=== PATIENT | female | born 1930 | race Caucasian/White ===

== ENCOUNTER 2016-09-04 11:04 | Emergency (ER) | payer MEDICARE ==
[2016-09-04 11:20] LABS: Glucose,Whole Blood 106 mg/dL (75-99)
[2016-09-04] MEDS ORDERED: KETOROLAC 60 MG/2 ML VIAL IVP STA (11:29)
[2016-09-04] MEDS ORDERED: ACETAMINOPHEN TAB 500 MG TAB PO STA (11:31)
--- NOTE | 2016-09-04 11:36 | ED ---
General Adult HPI - General Chief complaint: Weakness Stated complaint: Numbness Time Seen by Provider: 09/04/16 11:15 Source: patient, RN notes reviewed Mode of arrival: wheelchair Limitations: no limitations - History of Present Illness Initial comments: This is an 86-year-old female who presents emergency department with past medical history significant for chronic back pain and back surgery. Patient states when she woke up and her back pain was worsened normal and she is having tingling down both legs but no actual numbness. Patient states she has normal range of motion of her lower extremities. Patient denies any dysuria or incontinence or retention. Patient states she was having some urinary frequency. Patient had a fever in ER she was unaware of this when she arrived. Patient states she was able to ablate with her walker normally today. Patient denies any difficulty breathing or shortness of breath per patient denies any cough. Patient denies any chest pain. Patient denies any lightheadedness dizziness or near syncopal episode. Patient denies any abdominal pain patient denies nausea vomiting diarrhea. - Related Data Home Medications Medication Instructions Recorded Confirmed Docusate [Colace] 100 mg PO DAILY 12/07/15 09/04/16 Furosemide [Lasix] 20 mg PO DAILY 12/07/15 09/04/16 Lisinopril [Zestril] 20 mg PO DAILY 12/07/15 09/04/16 Potassium 99 mg PO DAILY 12/07/15 09/04/16 Terazosin [Hytrin] 5 mg PO HS 12/07/15 09/04/16 oxyCODONE-APAP 10-325MG [Percocet 1 tab PO TID@0400,1200,2000 12/07/15 09/04/16 10-325 mg] Methadone [Dolophine] 10 mg PO TID@0000,0800,1600 09/04/16 09/04/16 Previous Rx's Medication Instructions Recorded Levofloxacin 750Mg-D5w Pmx 750 mg IVPB Q24H #7 bag 09/04/16 [Levaquin 750Mg-D5w Pmx] Allergies Allergy/AdvReac Type Severity Reaction Status Date / Time cephalexin [From Keflex] Allergy Unknown Verified 09/04/16 11:56 Review of Systems ROS Statement: Those systems with pertinent positive or pertinent negative responses have been documented in the HPI. ROS Other: All systems not noted in ROS Statement are negative. Past Medical History Past Medical History: Hypertension Additional Past Medical History / Comment(s): chronic back pain History of Any Multi-Drug Resistant Organisms: None Reported Past Surgical History: Back Surgery Past Psychological History: No Psychological Hx Reported Smoking Status: Never smoker Past Alcohol Use History: Occasional Past Drug Use History: None Reported General Exam - General Exam Comments Initial Comments: GENERAL: Patient is well-developed and well-nourished. Patient is nontoxic and well- hydrated and is in mild distress. ENT: Neck is soft and supple. No significant lymphadenopathy is noted. Oropharynx is clear. Moist mucous membranes. Neck has full range of motion without eliciting any pain. EYES: The sclera were anicteric and conjunctiva were pink and moist. Extraocular movements were intact and pupils were equal round and reactive to light. Eyelids were unremarkable. PULMONARY: Unlabored respirations. Good breath sounds bilaterally. No audible rales rhonchi or wheezing was noted. CARDIOVASCULAR: There is a regular rate and rhythm without any murmurs gallops or rubs. ABDOMEN: Soft and nontender with normal bowel sounds. No palpable organomegaly was noted. There is no palpable pulsatile mass. SKIN: Skin is clear with no lesions or rashes and otherwise unremarkable. NEUROLOGIC: Patient is alert and oriented x3. Cranial nerves II through XII are grossly intact. Motor and sensory are also intact. Normal speech, volume and content. Symmetrical smile. MUSCULOSKELETAL: Normal extremities with adequate strength and full range of motion. LYMPHATICS: No significant lymphadenopathy is noted PSYCHIATRIC: Normal psychiatric evaluation. Limitations: no limitations Course Vital Signs 09/04/16 09/04/16 11:16 13:49 Temperature 100.1 F H 98.7 F Pulse Rate 92 68 Respiratory 18 18 Rate Blood Pressure 179/85 135/61 O2 Sat by Pulse 97 97 Oximetry Medical Decision Making - Medical Decision Making EKG shows a normal sinus rhythm with occasional PAC at 86 bpm. It was 144 Hugo is 72 QT interval 362 QTC is 433. Patient's EKG shows no ST segment elevation or depression or T wave abnormalities are noted. Patient has a urinary tract infection was start the patient on Levaquin emergency department sent the patient home on Levaquin. Patient states her back pain is gotten considerably better since the Toradol Tylenol were given. - Lab Data Result diagrams: 09/04/16 11:32 09/04/16 11:32 Lab Results 09/04/16 09/04/16 09/04/16 Range/Units 11:13 11:32 11:32 WBC 5.4 (3.8-10.6) k/uL RBC 3.66 L (3.80-5.40) m/uL Hgb 11.8 (11.4-16.0) gm/dL Hct 35.7 (34.0-46.0) % MCV 97.7 (80.0-100.0) fL MCH 32.2 (25.0-35.0) pg MCHC 33.0 (31.0-37.0) g/dL RDW 13.0 (11.5-15.5) % Plt Count 323 (150-450) k/uL Neutrophils % 71 % Lymphocytes % 21 % Monocytes % 5 % Eosinophils % 0 % Basophils % 0 % Neutrophils # 3.9 (1.3-7.7) k/uL Lymphocytes # 1.1 (1.0-4.8) k/uL Monocytes # 0.3 (0-1.0) k/uL Eosinophils # 0.0 (0-0.7) k/uL Basophils # 0.0 (0-0.2) k/uL Sodium 138 (137-145) mmol/L Potassium 4.3 (3.5-5.1) mmol/L Chloride 106 (98-107) mmol/L Carbon Dioxide 23 (22-30) mmol/L Anion Gap 9 mmol/L BUN 17 (7-17) mg/dL Creatinine 0.66 (0.52-1.04) mg/dL Est GFR (MDRD) Af Amer >60 (>60 ml/min/1.73 sqM) Est GFR (MDRD) Non-Af >60 (>60 ml/min/1.73 sqM) Glucose 99 (74-99) mg/dL POC Glucose (mg/dL) 106 H (75-99) mg/dL POC Glu Electrical [employer] Intern ID Robby Brown Plasma Lactic Acid Brigido (0.7-2.0) mmol/L Calcium 9.0 (8.4-10.2) mg/dL Total Bilirubin 0.6 (0.2-1.3) mg/dL AST 26 (14-36) U/L ALT 20 (9-52) U/L Alkaline Phosphatase 47 (38-126) U/L Total Protein 7.0 (6.3-8.2) g/dL Albumin 3.8 (3.5-5.0) g/dL Urine Color Urine Appearance (Clear) Urine pH (5.0-8.0) Ur Specific Clayton (1.001-1.035) Urine Protein (Negative) Urine Glucose (UA) (Negative) Urine Ketones (Negative) Urine Blood (Negative) Urine Nitrite (Negative) Urine Bilirubin (Negative) Urine Urobilinogen (<2.0) mg/dL Ur Leukocyte Esterase (Negative) Urine WBC (0-5) /hpf Ur Squamous Epith Cells (0-4) /hpf Amorphous Sediment (None) /hpf Urine Bacteria (None) /hpf Urine Mucus (None) /hpf 09/04/16 09/04/16 Range/Units 11:32 13:08 WBC (3.8-10.6) k/uL RBC (3.80-5.40) m/uL Hgb (11.4-16.0) gm/dL Hct (34.0-46.0) % MCV (80.0-100.0) fL MCH (25.0-35.0) pg MCHC (31.0-37.0) g/dL RDW (11.5-15.5) % Plt Count (150-450) k/uL Neutrophils % % Lymphocytes % % Monocytes % % Eosinophils % % Basophils % % Neutrophils # (1.3-7.7) k/uL Lymphocytes # (1.0-4.8) k/uL Monocytes # (0-1.0) k/uL Eosinophils # (0-0.7) k/uL Basophils # (0-0.2) k/uL Sodium (137-145) mmol/L Potassium (3.5-5.1) mmol/L Chloride (98-107) mmol/L Carbon Dioxide (22-30) mmol/L Anion Gap mmol/L BUN (7-17) mg/dL Creatinine (0.52-1.04) mg/dL Est GFR (MDRD) Af Amer (>60 ml/min/1.73 sqM) Est GFR (MDRD) Non-Af (>60 ml/min/1.73 sqM) Glucose (74-99) mg/dL POC Glucose (mg/dL) (75-99) mg/dL POC Glu Electrical [employer] Intern ID Plasma Lactic Acid Brigido 1.7 (0.7-2.0) mmol/L Calcium (8.4-10.2) mg/dL Total Bilirubin (0.2-1.3) mg/dL AST (14-36) U/L ALT (9-52) U/L Alkaline Phosphatase (38-126) U/L Total Protein (6.3-8.2) g/dL Albumin (3.5-5.0) g/dL Urine Color Light Yellow Urine Appearance Cloudy H (Clear) Urine pH 8.0 (5.0-8.0) Ur Specific [place] 1.009 (1.001-1.035) Urine Protein Negative (Negative) Urine Glucose (UA) Negative (Negative) Urine Ketones Negative (Negative) Urine Blood Negative (Negative) Urine Nitrite Negative (Negative) Urine Bilirubin Negative (Negative) Urine Urobilinogen <2.0 (<2.0) mg/dL Ur Leukocyte Esterase Large H (Negative) Urine WBC 28 H (0-5) /hpf Ur Squamous Epith Cells <1 (0-4) /hpf Amorphous Sediment Few H (None) /hpf Urine Bacteria Rare H (None) /hpf Urine Mucus Rare H (None) /hpf Disposition Clinical Impression: Urinary tract infection, Chronic back pain Disposition: HOME SELF-CARE Condition: Good Instructions: Urinary Tract Infection in Women (ED) Prescriptions: Levofloxacin 750Mg-D5w Pmx [Levaquin 750Mg-D5w Pmx] 750 mg IVPB Q24H #7 bag Referrals: Mago Jackson DO [Primary Care Provider] - 1-2 days Time of Disposition: 14:02
[2016-09-04 11:44] LABS: Basophils % (A) 0 %; CHCM 33.9; Eosinophils % (A) 0 %; HCT 35.7 % (34.0-46.0); HDW 2.29; HGB 11.8 gm/dL (11.4-16.0); Luc # (Auto) 0.12; Luc % (Auto) 2; Lymphocytes # (A) 1.1 k/uL (1.0-4.8); Lymphocytes % (A) 21 %; MCH 32.2 pg (25.0-35.0); MCV 97.7 fL (80.0-100.0); Mean Platelet Volume 7.3; Monocytes # (A) 0.3 k/uL (0-1.0); Monocytes % (A) 5 %; Neutrophils # (A) 3.9 k/uL (1.3-7.7); Neutrophils % (A) 71 %; RBC 3.66 m/uL (3.80-5.40); WBC 5.4 k/uL (3.8-10.6); WBC (Perox) 5.63
[2016-09-04 11:55] LABS: ALT 20 U/L (9-52); AST 26 U/L (14-36); Alkaline Phosphatase 47 U/L (38-126); Anion Gap 9 mmol/L; Blood Urea Nitrogen 17 mg/dL (7-17); Carbon Dioxide 23 mmol/L (22-30); Chloride 106 mmol/L (98-107); Glucose 99 mg/dL (74-99); Non-African American GFR(MDRD) >60 (>60 ml/min/1.73 sqM); Potassium 4.3 mmol/L (3.5-5.1); Sodium 138 mmol/L (137-145); Total Bilirubin 0.6 mg/dL (0.2-1.3)
--- NOTE | 2016-09-04 12:37 | XR ---
Lumbar spine HISTORY: Back pain, leg numbness Correlation to prior lumbosacral spine 09/12/2011 3 views of the lumbar spine Anterolisthesis grade 1 L4-5. Multilevel posterior spinal fusion is present to include T12-L5, superi or endplate of L1 show some loss of height as on prior exam. Bone mineralization is reduced as on pre vious exam. Thoracic posterior spinal fusion changes are also present. Multilevel laminectomies are p resent. There is a spinal curvature. Multilevel spondylosis and loss of disc height at the interverte bral levels and has progressed especially at L5-S1 there is endplate sclerosis and spondylosis, there is associated vacuum phenomenon. Sclerosis in the posterior elements compatible with facet arthropat hy. IMPRESSION: Postop changes, osteoporosis may limit sensitivity. Degenerative disc disease has progres sed. Stable superior endplate compression deformity L1.
--- NOTE | 2016-09-04 12:45 | XR ---
Thoracic spine HISTORY: Back pain and leg numbness 2 views of the thoracic spine and 4 images Patient is status post posterior fusion of T5-T11. There is a spinal curvature. Wedging is present an terior aspect of T11, there is a kyphosis. Bone mineralization is reduced. Multilevel wedge compressi on deformities suspected at L4 and L5. There is multilevel spondylosis. IMPRESSION: Osteoporosis, degenerative disc disease, postop changes and additional findings above.
[2016-09-04 13:57] LABS: Amorphous Sediment,Urine Few /hpf; Appearance,Urine Cloudy (Clear); Bacteria,Urine Rare /hpf; Bilirubin,Urine Negative (Negative); Glucose,Urine (UA) Negative (Negative); Ketones,Urine Negative (Negative); Leukocyte Esterase,Urine Large (Negative); Mucus,Urine Rare /hpf; Nitrite,Urine Negative (Negative); Particle Count 91410; Protein,Urine Negative (Negative); Specific Gravity,Urine 1.009 (1.001-1.035); Squamous Epithelial Cell,Urine <1 /hpf (0-4); UA Billing (MACRO vs. MICRO) MICRO; Urobilinogen,Urine <2.0 mg/dL (<2.0); WBC,Urine 28 /hpf (0-5)
[2016-09-04] MEDS ORDERED: LEVOFLOXACIN 750 MG TAB PO STA (13:58)
[2016-09-04] MEDS ORDERED: IPRATROPIUM-ALBUTEROL 3 ML NEB INHALATION STA (14:20)
[2016-09-04] MEDS ORDERED: methylPREDNISolone SOD SUCCI 125 MG/2 ML VIAL IV STA (14:20)
[2016-09-04 15:03] VITALS: BP 136/75; PULSE 74; RESP 16; TEMP 100.3
== END 2016-09-04 15:18 | disposition home or self-care (01) ==
LOC: EC 11:04
DX: N39.0 Urinary tract infection, site not specified (principal); M54.9 Dorsalgia, unspecified; G89.29 Other chronic pain; I10 Essential (primary) hypertension; Z88.1 Allergy status to other antibiotic agents; Z79.891 Long term (current) use of opiate analgesic; Z79.899 Other long term (current) drug therapy
CPT/HCPCS: 99285; 96374; 36415; 80053; 83605; 85025; 81001; 87040; 87086; 72072; 72100; J1885; 87077; 87186